=== PATIENT | female | born 1960 | race Caucasian/White ===

== ENCOUNTER 2016-07-10 11:31 | Emergency (ER) | payer OTHER ==
[~2016-07-10 11:31] MED LIST: COLACE100 MG PO; FEOSOL325 MG PO; LORTAB 5-325 M1 EACH PO; NAPROXEN500 MG PO; VITAMIN C500 M1 PO; XARELTO10 MG PO
== END 2016-07-10 12:15 | disposition home or self-care (01) ==
LOC: ER 11:31
DX: L02.511 Cutaneous abscess of right hand (principal); I10 Essential (primary) hypertension; Z87.891 Personal history of nicotine dependence; Z88.0 Allergy status to penicillin; Z88.1 Allergy status to other antibiotic agents; Z88.2 Allergy status to sulfonamides

== ENCOUNTER 2016-08-19 14:08 | Emergency (ER) | payer OTHER | END 2016-08-19 14:37 | disposition home or self-care (01) | LOC: ER 14:08 | DX: M77.9 Enthesopathy, unspecified (principal); Z87.891 Personal history of nicotine dependence; Z98.890 Other specified postprocedural states; Z88.1 Allergy status to other antibiotic agents; Z88.0 Allergy status to penicillin; Z88.2 Allergy status to sulfonamides; Z79.899 Other long term (current) drug therapy ==

== ENCOUNTER 2016-08-29 23:21 | Emergency (ER) | payer OTHER | END 2016-08-30 03:50 | disposition home or self-care (01) | LOC: ER 23:21 | DX: J02.9 Acute pharyngitis, unspecified (principal); Z79.899 Other long term (current) drug therapy; Z88.0 Allergy status to penicillin; Z88.1 Allergy status to other antibiotic agents; Z88.2 Allergy status to sulfonamides ==